=== PATIENT | female | born 1960 | race Caucasian/White ===

== ENCOUNTER 2020-04-20 07:18 | Outpatient (CLI) | payer OTHER ==
[2020-04-20 08:37] LABS: ALBUMIN 4.5 g/dL (3.4-5.0); ANION GAP 10.2 (8-16); CARBON DIOXIDE 29.6 mmol/L (21-32); CREATININE 0.8 mg/dL (0.6-1.3); POTASSIUM 3.8 mmol/L (3.5-5.1); TOTAL BILIRUBIN 0.4 mg/dL (0.0-1.0)
== END 2020-04-20 20:07 | disposition home or self-care (01) ==
LOC: MLB 07:18
PROVIDERS: ATTEND Internal Medicine
DX: E11.9 Type 2 diabetes mellitus without complications (principal)
CPT/HCPCS: 36415; 80053; 83036